=== PATIENT | female | born 1975 | race Caucasian/White ===

== ENCOUNTER 2016-05-20 18:50 | Emergency (ER) | payer BC ==
[2016-05-20 19:08] VITALS: BP 119/77; PULSE 80; RESP 18; TEMP 97.9
[2016-05-20] MEDS ORDERED: PROPARACAINE 0.5% OPHTH DROPS 15 ML BTL LEFT EYE STA (19:12)
--- NOTE | 2016-05-20 19:15 | ED ---
General Adult HPI - General Chief complaint: Eye Problems Stated complaint: FB in eye Time Seen by Provider: 05/20/16 19:00 Source: patient, RN notes reviewed Mode of arrival: ambulatory - History of Present Illness Initial comments: This is a 40-year-old female presents with a foreign body left eye. 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 Patient states she had double vision after this for about 10 minutes but her vision is normal now. Patient denies any blurred vision. Patient states she feels a foreign body sensation to the left eye. Patient states she noticed some debris the left eye but was able to remove this. Patient does not wear contacts. Patient denies any recent fever, chills, shortness breath, chest pain, abdominal pain, nausea/vomiting/diarrhea, back pain, numbness, tingling, hematuria, headache, or any other complaints. - Related Data Home Medications Medication Instructions Recorded Confirmed Cetirizine HCl [Zyrtec] 10 mg PO DAILY 02/12/16 02/13/16 Pseudoephedrine [Sudafed] 30 mg PO Q4H PRN 02/12/16 02/13/16 Previous Rx's Medication Instructions Recorded Erythromycin Ophth Oint [Romycin 1 applic LEFT EYE QID 7 Days 05/20/16 Ophth Oint] Allergies Allergy/AdvReac Type Severity Reaction Status Date / Time No Known Allergies Allergy Verified 02/13/16 11:23 Review of Systems ROS Statement: Those systems with pertinent positive or pertinent negative responses have been documented in the HPI. ROS Other: All systems not noted in ROS Statement are negative. Past Medical History Past Medical History: No Reported History History of Any Multi-Drug Resistant Organisms: None Reported Past Surgical History: No Surgical Hx Reported Past Psychological History: No Psychological Hx Reported Smoking Status: Never smoker Past Alcohol Use History: None Reported Past Drug Use History: None Reported General Exam - General Exam Comments Initial Comments: General: The patient is awake and alert, in no distress, and does not appear acutely ill. Eye: No foreign body noted with direct observation or with eyelid eversion bilaterally. Pupils are equal, round and reactive to light, extra-ocular movements are intact. No nystagmus. There is normal conjunctiva bilaterally. No signs of icterus. No hyphema or hypopyon. Visual Acuity is 20/25 in the left and right eyes and with both eyes. Neck: The neck is supple, there is no tenderness or JVD. Cardiovascular: There is a regular rate and rhythm. No murmur, rub or gallop is appreciated. Respiratory: Lungs are clear to auscultation, respirations are non-labored, breath sounds are equal. No wheezes, stridor, rales, or rhonchi. Musculoskeletal: Normal ROM, no tenderness. Strength 5/5. Sensation intact. Radial pulses equal bilaterally 2+. Neurological: A&O x 3. CN II-XII intact, There are no obvious motor or sensory deficits. Coordination appears grossly intact. Speech is normal. Skin: Skin is warm and dry and no rashes or lesions are noted. Psychiatric: Cooperative, appropriate mood & affect, normal judgment. Course Vital Signs 05/20/16 18:57 Temperature 97.9 F Pulse Rate 80 Respiratory 18 Rate Blood Pressure 119/77 O2 Sat by Pulse 98 Oximetry Procedures - Procedures Initial comment: Proparacaine was used to anesthetize the eye. Fluorescein stain was applied. Patient had relief after proparacaine drops. no foreign body visualized with eyelid eversion bilaterally. Left eye is viewed under the slit lamp exam and a few small foreign bodies were easily removed with a Q-tip. These foreign bodies could've been mascara. When viewed under the blue light with the slit lamp and solomon lamp there is a corneal abrasion noted to the middle of the eye. No hyphema or hypopyon. Patient tolerated the procedure well. Medical Decision Making - Medical Decision Making This is a 32-year-old female presents with foreign body sensation to the left eye. On physical exam No foreign body noted with direct observation or with eyelid eversion bilaterally. Pupils are equal, round and reactive to light, extra-ocular movements are intact. No nystagmus. There is normal conjunctiva bilaterally. No signs of icterus. Proparacaine was used to anesthetize the eye. Fluorescein stain was applied. Patient had relief after proparacaine drops. Left eye is viewed under the slit lamp exam and a few small foreign bodies were easily removed with a Q-tip. These foreign bodies could've been mascara. When viewed under the blue light with the slit lamp and solomon lamp there is a corneal abrasion noted to the middle of the eye. No hyphema or hypopyon. Discussed use of erythromycin ointment. I discussed that if patient' s symptoms are not completely resolved in 48 hours that she needs to follow-up with ophthalmology. If her eye feels 100% better within 48 hours and she does not need follow-up. I discussed return parameters. I discussed Tylenol and/or Motrin as needed for pain.Discussed that patient should follow up with PCP in one to 2 days or return to the [facility] for any worsening symptoms or for any further concerns. Patient was receptive to this plan and patient will be discharged home. I discussed this case with attending physician Dr. Smith who agrees the plan as stated above. Disposition Clinical Impression: Corneal abrasion Disposition: HOME SELF-CARE Condition: Good Instructions: Eye Foreign Body (ED) Additional Instructions: Eye ointment as prescribed. If your symptoms have not 100% improved in 48 hours please follow-up with ophthalmology. Please use Tylenol and/or Motrin as needed for any pain. Follow up with her family physician in one to 2 days or return to the [facility] for any worsening symptoms or for any further concerns. Prescriptions: Erythromycin Ophth Oint [Romycin Ophth Oint] 1 applic LEFT EYE QID 7 Days Referrals: Karlee Bass MD [Primary Care Provider] - 1-2 days Vincent Gacria MD [STAFF PHYSICIAN] - 1-2 days Time of Disposition: 20:15
[2016-05-20] MEDS ORDERED: ERYTHROMYCIN 5 MG/GM OPHTH OINT 3.5 GM TUBE LEFT EYE STA (20:08)
== END 2016-05-20 20:22 | disposition home or self-care (01) ==
LOC: EC 18:50
DX: T15.02XA Foreign body in cornea, left eye, initial encounter (principal); W22.8XXA Striking against or struck by other objects, initial encounter; Y93.H2 Activity, gardening and landscaping; Z79.899 Other long term (current) drug therapy
CPT/HCPCS: 65222; 99283

== ENCOUNTER → 2017-12-10 | Outpatient (CLI) | payer BC ==
--- NOTE | 2017-12-11 13:50 | MM ---
Reason for exam: screening (asymptomatic). Last mammogram was performed 4 years and 11 months ago. History: Family history of breast cancer in aunt. Took hormonal contraceptives beginning at age 23. Physical Findings: A clinical breast exam by your physician is recommended on an annual basis and results should be correlated with mammographic findings. MG Screening Mammo w CAD Bilateral CC and MLO view(s) were taken. Prior study comparison: January 12, 2013, bilateral digital screening mammo w/CAD. April 23, 2007, CAD bilateral diagnostic mammogram. The breast tissue is heterogeneously dense. This may lower the sensitivity of mammography. Finding: There is a questionable new 8 mm obscured mass in the upper quadrant, posterior position of the left breast. Asymmetric breast tissue in the right posterior breast, stable. Focal asymmetry right MLO view posterior upper aspect. ASSESSMENT: Incomplete: need additional imaging evaluation, BI-RAD 0 RECOMMENDATION: Special view mammogram of both breasts. If lesion persists on supplemental views, image directed ultrasound is recommended. [facility] will attempt to contact patient to return for supplemental views and ultrasound if indicated.
== END | disposition home or self-care (01) ==
LOC: RADMAMWWP 08:52
PROVIDERS: ATTEND Obstetrics & Gynecology
DX: Z12.31 Encounter for screening mammogram for malignant neoplasm of breast (principal)
CPT/HCPCS: 77067

== ENCOUNTER → 2017-12-17 | Outpatient (CLI) | payer BC ==
--- NOTE | 2017-12-17 14:34 | MM ---
Reason for exam: additional evaluation requested from abnormal screening. Last mammogram was performed less than 1 month ago. History: Family history of breast cancer in aunt. Took hormonal contraceptives beginning at age 23. Physical Findings: Nurse did not find any significant physical abnormalities on exam. MG Work Up Mamm w CAD BILAT Bilateral spot compression CC, spot compression MLO, and LM view(s) were taken. Prior study comparison: December 10, 2017, bilateral MG screening mammo w CAD. January 12, 2013, bilateral digital screening mammo w/CAD. Right breast: no discrete abnormality. Left breast: asymmetric density 7.4cm from nipple upper outer quadrant. These results were verbally communicated with the patient and result sheet given to the patient on 12/17/17. ASSESSMENT: Incomplete: need additional imaging evaluation, BI-RAD 0 Benign, BI-RAD 2 finding in the right breast. Incomplete: need additional imaging evaluation, BI-RAD 0 of the left breast. RECOMMENDATION: Ultrasound of the left breast.
--- NOTE | 2017-12-17 14:37 | USB ---
Reason for exam: additional evaluation requested from abnormal screening. History: Family history of breast cancer in aunt. Took hormonal contraceptives beginning at age 23. US Breast Workup Limited LT Left limited breast ultrasound including focal area of concern, retroareolar and axilla demonstrates a 8 x 4 x 9mm solid lesion at 2 o'clock for which a biopsy is recommended and a 6 x 2 x 3mm cystic lesion at 4 o'clock. These results were verbally communicated with the patient and result sheet given to the patient on 12/18/15. ASSESSMENT: Suspicious, BI-RAD 4 RECOMMENDATION: Ultrasound core biopsy of the left breast. (2 o'clock) Called Dr. Rendon with mammographic findings and has scheduled an appointment for the patient for 12/24/17 at 9:[address] Smith. PRELIMINARY REPORT CALLED AND FAXED TO DR. SMITH ON 12/17/17.
== END | disposition home or self-care (01) ==
LOC: RADMAMWWP 12:52
PROVIDERS: ATTEND Obstetrics & Gynecology
DX: R92.8 Other abnormal and inconclusive findings on diagnostic imaging of breast (principal)
CPT/HCPCS: 77066

== ENCOUNTER → 2017-12-29 | Day surgery (SDC) | payer BC ==
[2017-12-29 07:21] VITALS: RESP 16; TEMP 98.1; BMI 25.2
--- NOTE | 2017-12-29 08:41 | USB ---
EXAMINATION TYPE: US biopsy breast VAD LT, MG diagnostic mammo LT wo CAD DATE OF EXAM: 12/29/2017 CLINICAL HISTORY: R92.8 Abn mammo. TECHNIQUE: Ultrasound guided core biopsy of left breast. COMPARISON: 12/17/2017 FINDINGS: The procedure of ultrasound guided core biopsy was explained to the patient. Benefits, alternatives, and risks were discussed. An informed consent was then obtained. Preprocedural timeout was performed. The patient was placed in supine positioning for imaging and for the procedure. The overlying skin was prepped and draped in usual sterile fashion. 10 cc of lidocaine buffered with bicarbonate was used as anesthetic into the skin and subcutaneous tissue up to the 0.8 x 0.4 x 0.9 mm solid mass at the 2: 00 position within the left breast. Under ultrasound guidance, a 12-gauge vacuum assisted biopsy gun device was used to obtain 4 core samples. Following this, a ribbon-shaped biopsy clip was left in lesion. Postprocedural mammogram demonstrates appropriate clip placement. The patient tolerated the procedure well without any immediate complication. The patient was kept in the radiology department for short stay after the procedure and then discharged home in stable condition. IMPRESSION: Successful, uncomplicated ultrasound guided core biopsy of a 0.8 x 0.4 x 0.9 cm solid mass at the 2:00 position within the left breast that may represent a fibroadenoma, full pathology results to follow. Pathology Results: Benign LEFT BREAST, NEEDLE CORE BIOPSIES: Fibroadenoma. Focal microscopic intraductal mineralizations are identified. Recommendation Follow up ultrasound of the left breast in 6 months. KAMLESH
[2017-12-29 08:51] VITALS: BP 106/72; PULSE 73
== END ==
LOC: RADUSWWP 07:00
PROVIDERS: ATTEND Surgery
DX: D24.2 Benign neoplasm of left breast (principal); R92.8 Other abnormal and inconclusive findings on diagnostic imaging of breast
CPT/HCPCS: 88305; 77065; 19083; A4648; J2001

== ENCOUNTER 2018-04-05 15:34 | Emergency (ER) | payer BC ==
[2018-04-05 15:41] VITALS: PULSE 75; RESP 18
[2018-04-05] MEDS ORDERED: METOCLOPRAMIDE 5 MG/ML 2 ML VIAL IVP STA (15:55)
[2018-04-05] MEDS ORDERED: SODIUM CHLORIDE 0.9% 1,000 ML IV ONE (15:55)
[2018-04-05] MEDS ORDERED: HYDROmorphone 1 MG/ML 1 ML SYRINGE IVP STA (15:56)
--- NOTE | 2018-04-05 16:00 | ED ---
General Adult HPI - General Chief complaint: Headache Stated complaint: Migraine Source: patient, family, RN notes reviewed Mode of arrival: ambulatory Limitations: no limitations - History of Present Illness Initial comments: Chief complaint and history of present illness a 42-year-old female here with her . The patient reports that she has a history of migraines. She had one this morning took her Relpax but then vomited. Headache persists. Patient also states she thinks she might be dehydrated. Patient denies any fever, injuries or other complications. She's had a full workup in the past for migraines. This seems to be one of her normal migraines but because she vomited her medication is not going away. - Related Data Home Medications Medication Instructions Recorded Confirmed Cetirizine HCl [Zyrtec] 10 mg PO DAILY 02/12/16 04/05/18 Pseudoephedrine [Sudafed] 30 mg PO DAILY 02/12/16 04/05/18 Eletriptan HBr [Relpax] 20 mg PO DAILY PRN 12/26/17 04/05/18 Previous Rx's Medication Instructions Recorded Ondansetron Odt [Zofran Odt] 4 mg PO Q8HR PRN #10 tab 04/05/18 Allergies Allergy/AdvReac Type Severity Reaction Status Date / Time No Known Allergies Allergy Verified 04/05/18 15:59 Review of Systems ROS Statement: Those systems with pertinent positive or pertinent negative responses have been documented in the HPI. Review of systems no headache no visual acuity though she does have photophobia and also sounds make the headache worse. No stiff neck no meningismus. No palpitations chest pain no shortness of breath no GI/ problems other than vomiting with the migraine this morning denies any neuro deficits. All systems reviewed. Past medical problems significant only for migraines for which she takes Relpax. Surgeries she's had Lasix surgeries on her eyes and uterine ablation. Denies any ALLERGIES. Denies smoking denies drinking. Family history noncontributory ROS Other: All systems not noted in ROS Statement are negative. Past Medical History Past Medical History: No Reported History Additional Past Medical History / Comment(s): oral lichen planus, lasix eye surgery History of Any Multi-Drug Resistant Organisms: None Reported Past Surgical History: Uterine Ablation Past Anesthesia/Blood Transfusion Reactions: No Reported Reaction Past Psychological History: No Psychological Hx Reported Smoking Status: Never smoker Past Alcohol Use History: None Reported Past Drug Use History: None Reported General Exam - General Exam Comments Initial Comments: General: The patient is awake and alert, in no distress, patient presents with a migraine headache. She vomited this morning was unable to keep her migraine medications down. Vital signs shows temperature 97.9 pulse 75 respiratory rate 18 pulse ox on percent room air blood pressure 111/75. Eye: Pupils are equal, round and reactive to light, extra-ocular movements are intact ; there is normal conjunctiva bilaterally. No signs of icterus. Ears, nose, mouth and throat: There are moist mucous membranes and no oral lesions. Neck: The neck is supple, there is no tenderness, no stiff neck, no meningeal irritation i.e. no meningismus Cardiovascular: There is a regular rate and rhythm. No murmur, rub or gallop is appreciated. Respiratory: No shortness of breath no difficulty breathing lungs clear to auscultation Gastrointestinal: Patient vomited this morning secondary to her migraine headache. Feels dry. Neurological: CN II-XII intact, There are no obvious motor or sensory deficits. Coordination appears grossly intact. Speech is normal. No neuro deficits Skin: Skin is warm and dry and no rashes or lesions are noted. Psychiatric: Cooperative, Limitations: no limitations Course Vital Signs 04/05/18 15:38 Temperature 97.9 F Pulse Rate 75 Respiratory 18 Rate Blood Pressure 111/75 O2 Sat by Pulse 100 Oximetry Medical Decision Making - Medical Decision Making Medical decision making; is a 42-year-old female here with her . The patient has a known history of migraines. Patient reports she was awakened this morning with a migraine. Took her Relpax for migraines but then vomited it. Headaches persisted throughout the day patient complains of her typical headache. No evidence of any meningeal irritation or meningismus. Patient was last in emergency room over 3 years ago for a headache that was difficult to control because of the vomiting and unable to take her medications. Neurologically the patient's intact. The patient states she does feel dry. She will have 1 L of fluid administered she will also receive IV Reglan and Dilaudid. Patient rested, received IV hydration, Reglan and Dilaudid. This time the patient states she is feeling good, wants to go home. She'll be discharged home with her will drive. Advised to use Zofran prescribed as directed and follow up with OB physician, neurologist on emergency room as needed. Disposition Clinical Impression: Cluster headaches Disposition: HOME SELF-CARE Condition: Fair Instructions: Acute Headache (ED) Prescriptions: Ondansetron Odt [Zofran Odt] 4 mg PO Q8HR PRN #10 tab PRN Reason: Nausea Is patient prescribed a controlled substance at d/c from ED?: No Referrals: Oscar Santos MD [Primary Care Provider] - 1-2 days Time of Disposition: 17:04
[2018-04-05 17:14] VITALS: BP 110/68; TEMP 98.7
== END 2018-04-05 17:12 | disposition home or self-care (01) ==
LOC: EC 15:34
DX: G44.009 Cluster headache syndrome, unspecified, not intractable (principal); Z79.899 Other long term (current) drug therapy
CPT/HCPCS: 99283; 96374; 96375; 96361; J2765; J1170

== ENCOUNTER → 2018-08-27 | Outpatient (CLI) | payer BC ==
--- NOTE | 2018-08-28 12:05 | MM ---
Reason for exam: follow-up at short interval from prior study. Last mammogram was performed 8 months ago. History: Family history of breast cancer in aunt. Benign US biopsy breast VAD LT of the left breast, December 29, 2017. Took hormonal contraceptives beginning at age 23. Physical Findings: Nurse did not find any significant physical abnormalities on exam. MG 3D Diag Mammo W/Cad LT CC and MLO view(s) were taken of the left breast. Prior study comparison: December 29, 2017, left breast MG diagnostic mammo LT wo CAD. December 17, 2017, bilateral MG work up mamm w CAD BILAT. The breast tissue is heterogeneously dense. This may lower the sensitivity of mammography. No suspicious abnormality. Left biopsy marker noted. These results were verbally communicated with the patient and result sheet given to the patient on 08/27/18. ASSESSMENT: Benign, BI-RAD 2 RECOMMENDATION: Return to routine screening mammogram schedule for both breasts. Back on schedule for November 2018.
== END | disposition home or self-care (01) ==
LOC: RADMAMWWP 15:28
PROVIDERS: ATTEND Surgery
DX: R92.8 Other abnormal and inconclusive findings on diagnostic imaging of breast (principal); D24.2 Benign neoplasm of left breast
CPT/HCPCS: 77061; 77065

== ENCOUNTER → 2019-06-01 | Outpatient (CLI) | payer BC ==
--- NOTE | 2019-06-01 10:33 | MM ---
Reason for exam: screening (asymptomatic). Last mammogram was performed 9 months ago. History: Family history of breast cancer in aunt. Benign US biopsy breast VAD LT of the left breast, December 29, 2017. Took hormonal contraceptives beginning at age 23. Physical Findings: A clinical breast exam by your physician is recommended on an annual basis and results should be correlated with mammographic findings. MG 3D Screening Mammo W/Cad Bilateral CC and MLO view(s) were taken. Prior study comparison: August 27, 2018, left breast MG 3d diag mammo w/cad LT. December 29, 2017, left breast MG diagnostic mammo LT wo CAD. The breast tissue is heterogeneously dense. This may lower the sensitivity of mammography. There are benign appearing round regional calcifications in the left breast. Previous mammotome biopsy in the left breast. There is no discrete abnormality. ASSESSMENT: Benign, BI-RAD 2 RECOMMENDATION: Routine screening mammogram of both breasts in 1 year.
== END ==
LOC: RADMAMWWP 07:12
PROVIDERS: ATTEND Family Medicine
DX: Z12.31 Encounter for screening mammogram for malignant neoplasm of breast (principal)
CPT/HCPCS: 77063; 77067

== ENCOUNTER → 2019-12-15 | Outpatient (CLI) | payer BC ==
--- NOTE | 2019-12-16 15:39 | NM ---
EXAMINATION TYPE: NM thyroid image w uptake DATE OF EXAM: 12/16/2019 COMPARISON: NONE HISTORY: Thyrotoxicosis unspecified. Family history of Graves' disease. TECHNIQUE: Thyroid iodine uptake is calculated and images performed after the oral administration of 296 uCi 1-123 Capsule. FINDINGS: There is normal distribution of activity throughout the gland. The 4 hour iodine uptake is calculated at 8% (normal range 8-14%). The 24-hour iodine uptake is calculated at 22% (normal range 15-35%). IMPRESSION: Normal thyroid scan and uptake.
== END | disposition home or self-care (01) ==
LOC: RADNMMAIN 09:36
PROVIDERS: ATTEND Internal Medicine Endocrinology, Diabetes & Metabolism
DX: E05.90 Thyrotoxicosis, unspecified without thyrotoxic crisis or storm (principal)
CPT/HCPCS: 78014; A9516

== ENCOUNTER → 2020-06-08 | Outpatient (CLI) | payer BC ==
--- NOTE | 2020-06-12 11:47 | MM ---
Reason for exam: screening (asymptomatic). Last mammogram was performed 1 year ago. History: Family history of breast cancer in aunt. Benign US biopsy breast VAD LT of the left breast, December 29, 2017. Took hormonal contraceptives beginning at age 23. Physical Findings: A clinical breast exam by your physician is recommended on an annual basis and results should be correlated with mammographic findings. MG 3D Screening Mammo W/Cad Bilateral CC and MLO view(s) were taken. Prior study comparison: June 01, 2019, bilateral MG 3d screening mammo w/cad. August 27, 2018, left breast MG 3d diag mammo w/cad LT. The breast tissue is heterogeneously dense. This may lower the sensitivity of mammography. There are benign appearing round calcifications in the left breast. Previous mammotome biopsy in the left breast. There is no discrete abnormality. ASSESSMENT: Benign, BI-RAD 2 RECOMMENDATION: Routine screening mammogram of both breasts in 1 year.
== END | disposition home or self-care (01) ==
LOC: RADMAMWWP 14:37
PROVIDERS: ATTEND Family Medicine
DX: Z12.31 Encounter for screening mammogram for malignant neoplasm of breast (principal)
CPT/HCPCS: 77063; 77067

== ENCOUNTER → 2021-06-21 | Outpatient (CLI) | payer BC ==
--- NOTE | 2021-06-22 14:54 | MM ---
Reason for exam: screening (asymptomatic). Last mammogram was performed 1 year ago. History: Family history of breast cancer in aunt. Benign US biopsy breast VAD LT of the left breast, December 29, 2017. Took hormonal contraceptives beginning at age 23. Physical Findings: A clinical breast exam by your physician is recommended on an annual basis and results should be correlated with mammographic findings. MG 3D Screening Mammo W/Cad Bilateral CC and MLO view(s) were taken. Prior study comparison: June 08, 2020, bilateral MG 3d screening mammo w/cad. June 01, 2019, bilateral MG 3d screening mammo w/cad. The breast tissue is heterogeneously dense. This may lower the sensitivity of mammography. Previous mammotome biopsy in the left breast. No significant changes when compared with prior studies. ASSESSMENT: Benign, BI-RAD 2 RECOMMENDATION: Routine screening mammogram of both breasts in 1 year.
== END | disposition home or self-care (01) ==
LOC: RADMAMWWP 13:31
PROVIDERS: ATTEND Family Medicine
DX: Z12.31 Encounter for screening mammogram for malignant neoplasm of breast (principal); Z78.0 Asymptomatic menopausal state
CPT/HCPCS: 77063; 77067

== ENCOUNTER → 2022-06-28 | Outpatient (CLI) | payer BC ==
--- NOTE | 2022-07-01 15:31 | MM ---
Reason for Exam: Screening (asymptomatic). Last mammogram was performed 1 year(s) and 1 month(s) ago. Patient History: Menarche at age 16. First Full-Term at age 22. Premenopausal. Hormonal Contraceptives, from age 23 until age 32. 12/29/2017, Benign Core Biopsy on the left side. Maternal aunt had breast cancer, age 50. Risk Values: Roxie 5 year model risk: 1.0%. NCI Lifetime model risk: 9.6%. Prior Study Comparison: 06/01/2019 Bilateral Screening Mammogram, [facility]. 06/08/2020 Bilateral Screening Mammogram, [facility]. 06/21/2021 Bilateral Screening Mammogram, [facility]. Tissue Density: The breast tissue is heterogeneously dense. This may lower the sensitivity of mammography. Findings: Analyzed By CAD. There is no suspicious group of microcalcifications or new suspicious mass in either breast. Overall Assessment: Benign, BI-RAD 2 Management: Screening Mammogram of both breasts in 1 year. A clinical breast exam by your physician is recommended on an annual basis and results should be correlated with mammographic findings. Electronically signed and approved by: Sin Evans M.D. Radiologis
== END | disposition home or self-care (01) ==
LOC: RADMAMWWP 13:40
PROVIDERS: ATTEND Family Medicine
DX: Z12.31 Encounter for screening mammogram for malignant neoplasm of breast (principal); Z80.3 Family history of malignant neoplasm of breast
CPT/HCPCS: 77063; 77067

== ENCOUNTER → 2022-07-01 | Outpatient (CLI) | payer BC ==
--- NOTE | 2022-07-03 12:15 | MR ---
EXAMINATION TYPE: MR shoulder LT wo con DATE OF EXAM: 07/01/2022 6:32 AM CLINICAL INDICATION:Female, 46 years old with history of R52 pain; Pain with rotation of left shoulder x 6 months. COMPARISON: None TECHNIQUE: Multi planar, multi sequence imaging was performed of the shoulder including: Axial and coronal shaina n density fat-saturated sequences, T2 fat-saturated sagittal sequence, and T1-weighted imaging. No G adolinium was given. FINDINGS: Supraspinatus tendon: Increased PD signal near its insertion. No full-thickness rotator cuff tear visualized. Infraspinatus tendon: Intact Subscapularis tendon: Increased PD signal near its insertion. No full-thickness rotator cuff tear visualized. Teres minor tendon: Intact Long head biceps tendon: Intact, there is increased PD signal near its insertion onto the bicipit al anchor. It is appropriately positioned within the bicipital groove. Mild fluid is seen within the bursa around the biceps tendon felt to represent physiologic fluid. Acromioclavicular joint: Mild PD edema within the distal clavicle. Normal subacromial space. No effu delilah. Glenohumeral joint: Normal joint space and alignment. Normal articular cartilage. No effusion. Glenoid labrum: Intact with degeneration changes, within the limits of non arthrographic techniqu e. Muscle volume: There is appropriate muscle volume to the rotator cuff. High PD signal seen within the deltoid muscle near its insertion onto the acromion at the myotendinous junction.. Bone marrow: Normal. Soft tissues: Unremarkable. Joint/bursal fluid: None IMPRESSION: 1. Mild subscapularis, supraspinatus and long head of the biceps insertional tendinosis. 2. Deltoid muscle edema near the origin of the acromion correlate for deltoid muscle myotendinous anastacio ction tear. 3. No evidence of rotator cuff tear. 4. No evidence for displaced labral tear there is a degenerated labrum. 5. Mild acromioclavicular joint arthropathy with associated distal clavicle edema.
== END | disposition home or self-care (01) ==
LOC: RADMRIMAIN 05:59
PROVIDERS: ATTEND Orthopaedic Surgery Sports Medicine
DX: M19.012 Primary osteoarthritis, left shoulder (principal); M67.814 Other specified disorders of tendon, left shoulder; R59.0 Localized enlarged lymph nodes

== ENCOUNTER → 2023-02-15 | Outpatient (CLI) | payer BC ==
[2023-02-15 08:51] LABS: Prothrombin Time 10.6 sec (10.0-12.5)
[2023-02-17 22:30] LABS: Cardiolipin Ab IgG Interp Negative (Negative); Cardiolipin Ab IgM Interp Negative (Negative); Cardiolipin IgA Antibody <2.0 U/mL; Cardiolipin IgM Antibody 1.5 U/mL
[2023-02-18 13:17] LABS: APTT 40 Sec(s) (<43); Dilute Russell Viper Venom 35 Sec(s) (<44)
== END | disposition home or self-care (01) ==
LOC: LABWHC1 08:09
PROVIDERS: ATTEND Family Medicine
DX: Z83.2 Family history of diseases of the blood and blood-forming organs and certain disorders involving the immune mechanism (principal)
CPT/HCPCS: 36415; 85610; 85613; 85730; 86146; 86147

== ENCOUNTER → 2023-07-11 | Outpatient (CLI) | payer BC ==
--- NOTE | 2023-07-14 09:27 | MM ---
Reason for Exam: Screening (asymptomatic). Last screening mammogram was performed 12 month(s) ago. Patient History: Menarche at age 16. First Full-Term at age 22. Premenopausal. Hormonal Contraceptives, from age 23 until age 32. 12/29/2017, Benign Core Biopsy on the left side. Maternal aunt had breast cancer, age 50. Risk Values: Roxie 5 year model risk: 1.0%. NCI Lifetime model risk: 9.5%. Prior Study Comparison: 06/08/2020 Bilateral Screening Mammogram, [facility]. 06/21/2021 Bilateral Screening Mammogram, [facility]. 06/28/2022 Bilateral MG 3D screening mammo w/cad, [facility]. Tissue Density: The breasts are heterogeneously dense, which may obscure small masses. Findings: Analyzed By CAD. There is no suspicious group of microcalcifications or new suspicious mass in either breast. Overall Assessment: Benign, BI-RAD 2 Management: Screening Mammogram of both breasts in 1 year. . Patient should continue monthly self-breast exams. A clinical breast exam by your physician is recommended on an annual basis. This exam should not preclude additional follow-up of suspicious palpable abnormalities. Note on Roxie scores and lifetime risk: 1. A Roxie score greater than 3% is considered moderate risk. If this is the case, consider specialist referral to assess eligibility for a risk reducing agent. 2. If overall lifetime risk for the development of breast cancer is 20% or higher, the patient may qualify for future screening with alternating mammogram and breast MRI. Electronically signed and approved by: Sin Evans M.D. Radiologis
== END | disposition home or self-care (01) ==
LOC: RADMAMWWP 09:10
PROVIDERS: ATTEND Family Medicine
DX: Z12.31 Encounter for screening mammogram for malignant neoplasm of breast (principal); Z80.3 Family history of malignant neoplasm of breast
CPT/HCPCS: 77063; 77067

== ENCOUNTER 2024-06-22 12:21 | Emergency (ER) | payer BC ==
[2024-06-22 12:25] VITALS: TEMP 98
[2024-06-22 12:53] LABS: Basophils # (A) 0.1 k/uL (0-0.2); Basophils % (A) 1 %; Eosinophils # (A) 0.1 k/uL (0-0.7); Eosinophils % (A) 2 %; HCT 40.8 % (34.0-46.0); HGB 13.3 gm/dL (11.4-16.0); Lymphocytes # (A) 2.1 k/uL (1.0-4.8); Lymphocytes % (A) 31 %; MCH 27.8 pg (25.0-35.0); MCHC 32.5 g/dL (31.0-37.0); MCV 85.6 fL (80.0-100.0); Mean Platelet Volume 7.1; Monocytes # (A) 0.4 k/uL (0-1.0); Monocytes % (A) 6 %; Neutrophils # (A) 3.8 k/uL (1.3-7.7); Neutrophils % (A) 58 %; Platelet Count 393 k/uL (150-450); RBC 4.77 m/uL (3.80-5.40); RDW 13.6 % (11.5-15.5); WBC 6.6 k/uL (3.8-10.6)
--- NOTE | 2024-06-22 12:56 | XR ---
EXAMINATION TYPE: XR chest 2V DATE OF EXAM: 06/22/2024 CLINICAL INDICATION: Female, 48 years old with history of Chest Pain, TECHNIQUE: Frontal and lateral views of the chest are obtained. COMPARISON: Chest x-ray 2010 FINDINGS: There is no focal air space opacity, pleural effusion, or pneumothorax seen. The cardiac silhouette size remains within normal limits. The osseous structures are intact. IMPRESSION: No acute cardiopulmonary process. [facility], , 06/22/2024 12:54 PM
[2024-06-22 13:03] LABS: ALT 34 U/L (4-34); AST 28 U/L (14-36); African American GFR (CKD) >90 (>60 ml/min/1.73 sqM); Albumin 4.3 g/dL (3.5-5.0); Alkaline Phosphatase 80 U/L (38-126); Anion Gap 8 mmol/L; Blood Urea Nitrogen 8 mg/dL (7-17); Calcium 9.2 mg/dL (8.4-10.2); Carbon Dioxide 29 mmol/L (22-30); Chloride 99 mmol/L (98-107); Glucose 107 mg/dL (74-99); Lipase 42 U/L (23-300); Magnesium 1.8 mg/dL (1.6-2.3); Non-African American GFR(CKD) >90 (>60 ml/min/1.73 sqM); Sodium 136 mmol/L (137-145); Total Bilirubin 0.4 mg/dL (0.2-1.3); Total Protein 7.3 g/dL (6.3-8.2)
--- NOTE | 2024-06-22 13:07 | ED ---
Chest Pain HPI - General Chief Complaint: Chest Pain Stated Complaint: chest pain Time Seen by Provider: 06/22/24 12:26 Source: patient, RN notes reviewed, old records reviewed Mode of arrival: ambulatory Limitations: no limitations - History of Present Illness Initial Comments: This is a 48 female to the ER today. She is presents today for evaluation of chest pain this is left-sided chest pain chest pain between her shoulder blades and back. Patient states the symptoms began at work with some nausea and began feeling unwell decided that she felt too unwell for work and was driving home when she began to experience this chest pain no history of chest pain no history of heart evaluation no history of ER visit for chest pain. No history of stress test, no high blood pressure no high cholesterol nondiabetic non-smoker with no significant family history of heart disease. MD Complaint: chest pain -: hour(s) Onset: during rest Pain Location: substernal, left chest Pain Radiation: back Severity: moderate Severity scale (1-10): 4 Quality: aching Consistency: constant Improves With: nothing Worsens With: nothing Other Symptoms: palpitations Treatments Prior to Arrival: none - Related Data Home Medications Medication Instructions Recorded Confirmed Cetirizine HCl [Zyrtec] 10 mg PO DAILY 02/12/16 06/22/24 Eletriptan [Relpax] 40 mg PO DAILY PRN 06/22/24 06/22/24 Omeprazole [PriLOSEC] 20 mg PO DAILY 06/22/24 06/22/24 Pseudoephedrine 12Hr [Sudafed 12 120 mg PO DAILY 06/22/24 06/22/24 Hour] Allergies Allergy/AdvReac Type Severity Reaction Status Date / Time No Known Allergies Allergy Verified 06/22/24 14:39 Review of Systems ROS Statement: Those systems with pertinent positive or pertinent negative responses have been documented in the HPI. ROS Other: All systems not noted in ROS Statement are negative. EKG Findings - EKG Comments: EKG Findings:: EKG is sinus 75 IN 148 QRS 103 QTc 426 - EKG Results: EKG: interpreted by NANCYD Past Medical History Past Medical History: No Reported History Additional Past Medical History / Comment(s): oral lichen planus, lasix eye surgery History of Any Multi-Drug Resistant Organisms: None Reported Past Surgical History: Uterine Ablation Past Anesthesia/Blood Transfusion Reactions: No Reported Reaction Past Psychological History: No Psychological Hx Reported Smoking Status: Never smoker Past Alcohol Use History: None Reported Past Drug Use History: None Reported General Exam Limitations: no limitations General appearance: alert, in no apparent distress Head exam: Present: atraumatic, normocephalic, normal inspection Eye exam: Present: normal appearance, PERRL, EOMI. Absent: scleral icterus, conjunctival injection, periorbital swelling ENT exam: Present: normal exam, mucous membranes moist Neck exam: Present: normal inspection. Absent: tenderness, meningismus, lymphadenopathy Respiratory exam: Present: normal lung sounds bilaterally. Absent: respiratory distress, wheezes, rales, rhonchi, stridor Cardiovascular Exam: Present: regular rate, normal rhythm, normal heart sounds. Absent: systolic murmur, diastolic murmur, rubs, gallop, clicks GI/Abdominal exam: Present: soft, normal bowel sounds. Absent: distended, tenderness, guarding, rebound, rigid Extremities exam: Present: normal inspection, full ROM, normal capillary refill. Absent: tenderness, pedal edema, joint swelling, calf tenderness Back exam: Present: normal inspection Neurological exam: Present: alert, oriented X3, CN II-XII intact Psychiatric exam: Present: normal affect, normal mood Skin exam: Present: warm, dry, intact, normal color. Absent: rash Course Vital Signs 06/22/24 06/22/24 06/22/24 12:23 13:44 16:14 Temperature 98 F 98 F Pulse Rate 90 79 72 Respiratory 20 14 19 Rate Blood Pressure 153/95 147/92 166/95 O2 Sat by Pulse 99 98 98 Oximetry 06/22/24 17:12 Temperature Pulse Rate 84 Respiratory 18 Rate Blood Pressure 148/90 O2 Sat by Pulse 99 Oximetry - Reevaluation(s) Reevaluation #1: 06/22/24 15:50 Medical records reviewed Reevaluation #2: 06/22/24 17:06 Patient symptoms improving throughout ER stay Reevaluation #3: 06/22/24 17:06 Patient informed of results questions answered Reevaluation #4: Was pt. sent in by a medical professional or institution (, PA, HAND BRUSH FILLER, urgent care, hospital, or correction...) When possible be specific @ -no Did you speak to anyone other than the patient for history (EMS, parent, family, police, friend...)? What history was obtained from this source @ -no Did you review nursing and triage notes (agree or disagree)? Why? @ -agree Are old charts reviewed (outside hosp., previous admission, EMS record, old EKG, old radiological studies, urgent care reports/EKG's, correction records)? Report findings @ -yes Differential Diagnosis (chest pain, altered mental status, abdominal pain women, abdominal pain men, vaginal bleeding, weakness, fever, dyspnea, syncope, headache, dizziness, GI bleed, back pain, seizure, CVA, palpatations, mental he alth, musculoskeletal)? @ -prior EKG interpreted by me (3pts min.). @ -yes X-rays interpreted by me (1pt min.). @ -yes negative for acute disease CT interpreted by me (1pt min.). @ -no U/S interpreted by me (1pt. min.). @ -no What testing was considered but not performed or refused? (CT, X-rays, U/S, labs)? Why? @ -none What meds were considered but not given or refused? Why? @ -none Did you discuss the management of the patient with other professionals (professionals i.e. , PA, HAND BRUSH FILLER, lab, RT, psych nurse, social human services assistants, rental clerk, teacher, contracts officer, rn case manager)? Give summary @ -no Was smoking cessation discussed for >3mins.? @ -no Was critical care preformed (if so, how long)? @ -no Were there social determinants of health that impacted care today? How? (Homelessness, low income, unemployed, alcoholism, drug addiction, transportation, low edu. Level, literacy, decrease access to med. care, group home, rehab)? @ -none Was there de-escalation of care discussed even if they declined (Discuss DNR or withdrawal of care, Hospice)? DNR status @ -no What co-morbidities impacted this encounter? (DM, HTN, Smoking, COPD, CAD, Cancer, CVA, ARF, Chemo, Hep., AIDS, mental health diagnosis, sleep apnea, morbid obesity)? @ -none Was patient admitted / discharged? Hospital course, mention meds given and route, prescriptions, significant lab abnormalities, going to OR and other pe rtinent info. @ - 48 female presented today for chest pain. Patient has elevated D-dimer but normal EKG, normal troponin x 2 here in the ER and a negative CTA. Patient can be discharged home Discharge Undiagnosed new problem with uncertain prognosis? @ -no Drug Therapy requiring intensive monitoring for toxicity (Heparin, Nitro, Insulin, Cardizem)? @ -no Were any procedures done? @ -no Diagnosis/symptom? @ -Chest pain with chest pain Acute, or Chronic, or Acute on Chronic? @ -Acute Uncomplicated (without systemic symptoms) or Complicated (systemic symptoms)? @ -Complicated Side effects of treatment? @ -no Exacerbation, Progression, or Severe Exacerbation? @ -exacerbation Poses a threat to life or bodily function? How? (Chest pain, [place], [place], pneumonia, PE, COPD, DKA, ARF, appy, cholecystitis, CVA, Diverticulitis, Homicidal, Suicidal, threat to staff... and all critical care pts) @ -yes with chest pain Reevaluation #5: Differential Chest Pain: Stable Angina, Unstable Angina, STEMI, NSTEMI Aortic Dissection, Pneumothorax, Musculoskeletal, Esophageal Spasm GERD, Cholecystitis, Pancreatitis, Zoster, this is not meant to be an all-inclusive list. Chest Pain MDM - MDM 48 female presented today for chest pain. Patient has elevated D-dimer but normal EKG, normal troponin x 2 here in the ER and a negative CTA. Patient can be discharged home Disposition Clinical Impression: Chest pain Disposition: HOME SELF-CARE Condition: Good Instructions (If sedation given, give patient instructions): Chest Pain (ED) Is patient prescribed a controlled substance at d/c from ED?: No Referrals: Arnold Valentin DO [Primary Care Provider] - 1-2 days Time of Disposition: 17:00
[2024-06-22 13:09] LABS: INR 0.9 (<1.2); Partial Thromboplastin Time 23.7 sec (22.0-30.0); Prothrombin Time 10.3 sec (10.0-12.5)
[2024-06-22 13:12] LABS: NT-Pro-B-Type Natriuretic Pept <20 pg/mL
[2024-06-22] MEDS: ONDANSETRON 4 MG/2 ML VIAL IVP STA (13:41)
[2024-06-22] MEDS: SODIUM CHLORIDE 0.9% 1,000 ML IV ONE (13:51)
--- NOTE | 2024-06-22 15:31 | CT ---
EXAMINATION TYPE: CT angio chest DATE OF EXAM: 06/22/2024 COMPARISON: None CLINICAL INDICATION: Female, 48 years old with history of PE; PHH, chest pain, elevated D-dimer TECHNIQUE: CTA scan of the thorax is performed with IV Contrast, patient injected with 100 ml mL of Isovue 370, pulmonary embolism protocol. MIP images are created and reviewed. CT DLP: 276.[address] CTDI: mGy Automated exposure control for dose reduction was used. FINDINGS: LUNGS: The lungs are grossly clear, there is no concerning parenchymal mass or nodule identified. T here is no pleural effusion or pneumothorax seen. The tracheobronchial tree is patent. MEDIASTINUM: There is satisfactory enhancement of the pulmonary artery and its branches, there is no CT evidence for pulmonary embolism. There are no greater than 1 cm hilar or mediastinal lymph nodes. No pericardial effusion is seen. OTHER: No additional significant abnormality is seen. IMPRESSION: 1. NO EVIDENCE OF PULMONARY EMBOLISM. 2. NO ACUTE CARDIOPULMONARY DISEASE. [facility], , 06/22/2024 3:29 PM
[2024-06-22] MEDS: KETOROLAC 15 MG/ML 1 ML VIAL IVP STA (16:17)
[2024-06-22 17:13] VITALS: BP 148/90; PULSE 84; RESP 18
== END 2024-06-22 17:13 | disposition home or self-care (01) ==
LOC: EC 12:21
DX: R07.89 Other chest pain (principal); R79.1 Abnormal coagulation profile
CPT/HCPCS: 36415; 93005; 85379; 83880; 80053; 83690; 83735; 84484; 85025; 85610; 85730; 71046; 71275; 99285; 96360; Q9967

== ENCOUNTER → 2024-07-16 | Outpatient (CLI) | payer BC ==
--- NOTE | 2024-07-16 14:35 | MM ---
Reason for Exam: Screening (asymptomatic). Last screening mammogram was performed 12 month(s) ago. Patient History: Menarche at age 16. First Full-Term at age 22. Premenopausal. Hormonal Contraceptives, from age 23 until age 32. 12/29/2017, Benign Core Biopsy on the left side. Maternal aunt had breast cancer, age 50. Risk Values: Roxie 5 year model risk: 1.0%. NCI Lifetime model risk: 9.3%. Prior Study Comparison: 06/21/2021 Bilateral Screening Mammogram, [facility]. 06/28/2022 Bilateral MG 3D screening mammo w/cad, [facility]. 07/11/2023 Bilateral MG 3D screening mammo w/cad, [facility]. Tissue Density: The breasts are heterogeneously dense, which may obscure small masses. Findings: Analyzed By CAD. There is no suspicious group of microcalcifications or new suspicious mass in either breast. Overall Assessment: Benign, BI-RAD 2 Management: Screening Mammogram of both breasts in 1 year. . Patient should continue monthly self-breast exams. A clinical breast exam by your physician is recommended on an annual basis. This exam should not preclude additional follow-up of suspicious palpable abnormalities. Note on Roxie scores and lifetime risk: 1. A Roxie score greater than 3% is considered moderate risk. If this is the case, consider specialist referral to assess eligibility for a risk reducing agent. 2. If overall lifetime risk for the development of breast cancer is 20% or higher, the patient may qualify for future screening with alternating mammogram and breast MRI. [facility], , 07/16/2024 2:32 PM. Electronically signed and approved by: Sin Evans M.D. Radiologis
== END | disposition home or self-care (01) ==
LOC: RADMAMWWP 14:07
PROVIDERS: ATTEND Student in an Organized Health Care Education/Training Program
DX: Z12.31 Encounter for screening mammogram for malignant neoplasm of breast (principal); R92.333 Mammographic heterogeneous density, bilateral breasts; Z80.3 Family history of malignant neoplasm of breast; Z92.0 Personal history of contraception
CPT/HCPCS: 77063; 77067

== ENCOUNTER → 2024-07-30 | Outpatient (CLI) | payer BC ==
--- NOTE | 2024-07-30 09:05 | US ---
EXAMINATION TYPE: US abdomen limited DATE OF EXAM: 07/30/2024 COMPARISON: 05/30/2015 abdominal ultrasound CLINICAL INDICATION: Female, 48 years old with history of R11.0 NAUSEA; TECHNIQUE: Grayscale and color Doppler imaging of the right upper quadrant. FINDINGS: EXAM MEASUREMENTS: Liver Length: 14.8 cm Gallbladder Wall: 0.3 cm CBD: 0.3 cm, color Doppler imaging was utilized to isolate the common bile duct for measurement. Right Kidney: 11.4x5.9x5.3 cm FOOD AND BEVERAGE ASSISTANT NOTES: limited exam due to pt body habitus & overlying bowel Pancreas: Obscured by bowel gas Liver: Increased attenuation, decreased visualization of vessels suggestive of fatty infiltrate, sli ghtly difficult to penetrate Gallbladder: No stones seen, slightly obscured by bowel, limited views, intercostal views used Evidence for sonographic Giraldo's sign: No CBD: wnl Right Kidney: No hydronephrosis or masses seen Heterogeneous hyperechoic appearance of the liver. Evaluation for focal masses suboptimal due to the marked heterogeneity. Finding likely on basis of diffuse fatty infiltrative hepatocellular disease. N o ascites. IMPRESSION: Suboptimal study. No acute findings are evident. [facility], , 07/30/2024 9:03 AM
== END | disposition home or self-care (01) ==
LOC: RADUSWWP 08:32
PROVIDERS: ATTEND Student in an Organized Health Care Education/Training Program
DX: R11.0 Nausea (principal)
CPT/HCPCS: 76705